=== PATIENT | female | born 1965 | race Caucasian/White ===

== ENCOUNTER → 2016-12-13 | Outpatient (CLI) | payer OTHER ==
[~2016-12-13] MED LIST: CLARITIN10 MG PO; COMBIVENT1 ARO IH; COMPAZINE10 MG PO; DARVOCET N 1001 TAB PO; HYDROCODONE BIT1 T11 PO; ZANTAC150 MG PO; ZITHROMAX Z PA250 MG PO
== END | disposition home or self-care (01) ==
LOC: ORTHO 03:01
DX: M17.12 Unilateral primary osteoarthritis, left knee (principal)